=== PATIENT | male | born 1950 | race African-American/Black ===

== ENCOUNTER 2022-03-20 17:01 | Inpatient (IN) | payer MEDICARE, OTHER ==
[~2022-03-20] VITALS: Ht 165.1 cm; Wt 73.0 kg
[~2022-03-20 17:01] MED LIST: ACET325T53 PO; ASCO500C17 PO; Blood Sugar Diagnostic IN; CHOL50009 PO; Calcium Carb 600MG /Vit D PO; DIVA-78 PO; DOCU-141 PO; HYDR28.32 TP; INSU100V28 SQ; LACT-246 PO; MAG-55 PO; MAGN400O6 PO; METF-442 PO; OLAN7.5T3 PO; SULF-11 PO
--- NOTE | 2022-03-20 17:12 | NUR ---
To ER bed 1, [facility] from [facility] failure to thrive/weight loss", aaox1, breathing even and non labored, connected to monitor, awaiting md leon
--- NOTE | 2022-03-20 17:15 | NUR ---
SALINE LOCK ESTABLISHED, BLOOD DRAWN AND SENT TO LAB
[2022-03-20] MEDS ORDERED: Z GUARD REMEDY 4 OZ OINT TP PRN (17:30)
[2022-03-20] MEDS ORDERED: ACETAMINOPHEN 325 MG TABLET PO PRN (17:30)
[2022-03-20] MEDS ORDERED: DEXTROSE 50%-WATER 50 ML DISP.SYRIN IV PRN (17:30)
[2022-03-20] MEDS ORDERED: ONDANSETRON HCL/PF 4 MG/2 ML VIAL IVP PRN (17:30)
[2022-03-20] MEDS ORDERED: *INSULIN REGULAR(HUMULIN R)HUM 100 UNIT/ML VIAL SQ PRN (17:30)
[2022-03-20] MEDS ORDERED: MAG HYDROX/AL HYDROX/SIMETH 30 ML UDC PO PRN (17:30)
[2022-03-20] MEDS: BLOOD SUGAR DIAGNOSTIC 1 EACH STRIP VI SCH ×2 (17:30→22:05)
[2022-03-20] MEDS ORDERED: MAGNESIUM HYDROXIDE 30 ML UDC PO PRN (17:30)
[2022-03-20] MEDS ORDERED: AMIN887L PO (17:36)
[2022-03-20] MEDS ORDERED: CALC400T29 PO (17:36)
[2022-03-20] MEDS ORDERED: FURO-145 PO (17:36)
[2022-03-20 18:12] LABS: BASOPHILS % (AUTO) 0.4 % (0.0-2.0); EOSINOPHILS % (AUTO) 4.8 % (0.0-6.0); HEMATOCRIT 41 % (39-51); HEMOGLOBIN 13.9 g/dL (13.5-17.5); LYMPHOCYTES # (AUTO) 2.2 K/uL (0.8-4.8); LYMPHOCYTES % (AUTO) 29.6 % (20.0-44.0); MEAN CORPUSCULAR HGB CONC 34 g/dl (31.0-36.0); MEAN CORPUSCULAR VOLUME 88 fL (80-96); MONOCYTES # (AUTO) 0.6 K/uL (0.1-1.30); MONOCYTES % (AUTO) 8.6 % (2.0-12.0); NEUTROPHILS # (AUTO) 4.3 K/uL (1.8-8.9); NEUTROPHILS % (AUTO) 56.6 % (43.0-81.0); PLATELET COUNT (AUTO) 297 K/uL (150-450); RED BLOOD CELL COUNT(AUTO) 4.62 MIL/uL (4.5-6.0); WHITE BLOOD COUNT (AUTO) 7.5 K/uL (4.3-11.0)
--- NOTE | 2022-03-20 18:14 | NUR ---
MOVE SHEET SUBMITTED.
[2022-03-20 18:26] LABS: CALCIUM, SERUM 8.6 mg/dL (8.5-10.1); CARBON DIOXIDE 31 mmol/L (21-32); CHLORIDE 105 mmol/L (98-107); CREATININE 0.9 mg/dL (0.6-1.3); GLUCOSE 104 mg/dL (74-106); POTASSIUM 3.7 mmol/L (3.5-5.1); SODIUM SERUM 139 mmol/L (136-145); UREA NITROGEN, BLOOD 26 mg/dL (7-18)
[2022-03-20 18:31] LABS: ALANINE AMINOTRANSFERASE 16 U/L (12-78); ALBUMIN 3.4 g/dL (3.4-5.0); ALKALINE PHOSPHATASE 94 U/L (46-116); ASPARTATE AMINOTRANSFERASE 10 U/L (15-37); BILIRUBIN,DIRECT 0.1 mg/dL (0.0-0.2); BILIRUBIN,TOTAL 0.3 mg/dL (0.2-1.0); TOTAL PROTEIN, SERUM 7.3 g/dL (6.4-8.2)
[2022-03-20 19:31] LABS: BILIRUBIN,URINE NEGATIVE (NEGATIVE); COLOR,URINE YELLOW (YELLOW); LEUKOCYTE ESTERASE ,URINE LARGE (NEGATIVE); NITRITE, URINE POSITIVE (NEGATIVE); PH,URINE 7.5 (5.0-8.0); PROTEIN,URINE NEGATIVE (NEGATIVE); UGLUCOSE NEGATIVE (NEGATIVE)
[2022-03-20 19:36] LABS: RBC,URINE 0-2 /HPF (0-2)
[2022-03-20 19:37] LABS: BACTERIA,URINE Moderate /HPF (None Seen); SQUAMOUS EPITHELIAL CELL,UR Few /HPF (None Seen)
--- NOTE | 2022-03-20 19:43 | NUR ---
Maria Eugenia siddiqi in [facility] - 03/20/22 at 1947 by GAIL PLHEBOTOMIST AT PT'S BEDSIDE
--- NOTE | 2022-03-20 19:43 | NUR ---
PLHEBOTOMIST AT PT'S BEDSIDE
--- NOTE | 2022-03-20 20:29 | NUR ---
REPORT GIVEN TO MELANIA GREGG
[2022-03-20 21:04] VITALS: BP 131/70
--- NOTE | 2022-03-20 22:00 | NUR ---
MS RN NOTES PT A/O X1 ORIENTED TO SELF CONFUSED NOTED SPEAKING TO HIMSELF MOLDOVAN SPEAKING ONLY. PT IS HOWEVER ABLE TO MAKE BASIC NEED KNOWN PAIN AND THIRST. PT NOTED WITH IV ACCESS ON THE RAC #20G SALINE LOCKED FLUSHING WELL. PT ON ROOM AIR TOLERATING WELL NO RESPIRATORY DISTRESS NOTED. NO PAIN NOTED OR REPORTED AT THIS TIME. PT NOTED WITH MULTIPLE LINEAR SCABS ON THE LEGS AND RED BUMPS ALL OVER THE BODY PLACED ON CONTACT ISOLATION AND CHARGE NURSE INFORMED WOUND CARE CONSULT PUT IN TO RULE OUT ANY SKIN INFECTION/ SCABIES. HOB ELEVATED FOR ASPIRATION PRECAUTIONS. TABLE WITHIN REACH. BED ALARM ON BED IN LOWEST POSITION. CALL LIGHT WITHIN REACH. PT ORIENTED TO ROOM AND UNIT. ALL NEEDS MET AT THIS TIME. WILL CONTINUE TO MONITOR.
--- NOTE | 2022-03-20 22:00 | NUR ---
PATIENT TRANSFERRED TO [facility]
[2022-03-20] MEDS: OLANZAPINE 5 MG TABLET PO SCH (22:06)
[2022-03-20 22:49] VITALS: BP 131/70
--- NOTE | 2022-03-20 23:00 | NUR ---
MS RN NOTES CALLED CANDELARIA THE DAUGHTER AGAIN WAS ABLE OT TALK TO HER THIS TIME PER DAUGHTER PT HAS BEEN UNABLE TO AMBULATE AND HAS BEEN WHEELCHAIR BOUND RECENTLY PT WAS PREVIOUSLY ABLE TO AMBULATE WITH A FFW. DAUGHTER STATED SHE WOULD LIKE THE DOCTOR OR NURSE TO CALL HER TOMORROW TO UPDATE HER ON THE PLAN OF CARE FOR THE PT. DAUGHTER WILL TRY TO COME TOMORROW IN PERSON AROUND 3PM IF POSSIBLE.WILL ENDORSE TO DAY SHIFT NURSE. ALL QUESTIONS ANSWERED AT THIS TIME. WILL CONTINUE TO MONITOR PT.
--- NOTE | 2022-03-20 23:11 | NUR ---
MS VELÁZQUEZ NOTES RECEIVED CALL FROM DAUGHTER CANDELARIA DAUGHTER HUNG UP ABRUPTLY TRIED CALLING BACK X3 WITH X2 [employer] OF THE PHONE AND THIRD TIME PHONE WAS BUSY. Addendum: 03/20/22 at 2584 by JOHN LARSON RN NO MESSAGE BOX TO LEAVE CALL BACK INFO
[2022-03-21 06:13] LABS: BASOPHILS % (AUTO) 0.7 % (0.0-2.0); EOSINOPHILS % (AUTO) 6.4 % (0.0-6.0); HEMATOCRIT 39 % (39-51); HEMOGLOBIN 13.4 g/dL (13.5-17.5); LYMPHOCYTES # (AUTO) 1.9 K/uL (0.8-4.8); LYMPHOCYTES % (AUTO) 37.5 % (20.0-44.0); MEAN CORPUSCULAR HGB CONC 34 g/dl (31.0-36.0); MEAN CORPUSCULAR VOLUME 88 fL (80-96); MONOCYTES # (AUTO) 0.5 K/uL (0.1-1.30); MONOCYTES % (AUTO) 9.4 % (2.0-12.0); NEUTROPHILS # (AUTO) 2.4 K/uL (1.8-8.9); PLATELET COUNT (AUTO) 261 K/uL (150-450); RED BLOOD CELL COUNT(AUTO) 4.42 MIL/uL (4.5-6.0); WHITE BLOOD COUNT (AUTO) 5.1 K/uL (4.3-11.0)
--- NOTE | 2022-03-21 06:35 | NUR ---
MS RN NOTES PT A/O X1 ORIENTED TO SELF CONFUSED NOTED SPEAKING TO HIMSELF SAMOAN SPEAKING ONLY. PT IS HOWEVER ABLE TO MAKE BASIC NEED KNOWN PAIN AND THIRST. PT NOTED WITH IV ACCESS ON THE RAC #20G SALINE LOCKED FLUSHING WELL. PT ON ROOM AIR TOLERATING WELL NO RESPIRATORY DISTRESS NOTED. NO PAIN NOTED OR REPORTED AT THIS TIME. ALL DUE MEDS GIVEN AND TOLERATED WELL. HOB ELEVATED FOR ASPIRATION PRECAUTIONS. TABLE WITHIN REACH. BED ALARM ON BED IN LOWEST POSITION. CALL LIGHT WITHIN REACH. PT ORIENTED TO ROOM AND UNIT.ALL NEEDS MET AT THIS TIME. WILL ENDORSE CARE TO DAY SHIFT NURSE.
[2022-03-21 07:10] LABS: CALCIUM, SERUM 8.3 mg/dL (8.5-10.1); CREATININE 0.8 mg/dL (0.6-1.3); MAGNESIUM 2.3 mg/dL (1.8-2.4); PHOSPHORUS 3.9 mg/dL (2.5-4.9); POTASSIUM 3.8 mmol/L (3.5-5.1)
--- NOTE | 2022-03-21 07:30 | NUR ---
MS RN OPENING NOTES PT A/O X1 ORIENTED TO SELF , WITH CONFUSION, VENEZUELAN SPEAKING ONLY. IV ACCESS ON THE RAC #20G SALINE LOCKED FLUSHING WELL. PT ON ROOM AIR WITH NO SOB OR DISTRESS NOTED. NO PAIN NOTED OR REPORTED AT THIS TIME . BED IN LOWEST POSITION. CALL LIGHT WITHIN REACH. WILL CONTINUE TO MONITOR
[2022-03-21 08:00] VITALS: BP 105/75
[2022-03-21] MEDS: BLOOD SUGAR DIAGNOSTIC 1 EACH STRIP VI SCH ×4 (08:03→22:00)
[2022-03-21] MEDS: DOCUSATE SODIUM 100 MG CAPSULE PO SCH (08:34)
[2022-03-21] MEDS: DIVALPROEX SODIUM 250 MG TABLET.DR PO SCH ×3 (08:34→16:53)
[2022-03-21] MEDS ORDERED: HYDROCORTISONE 1% CREAM 28.35 GM TUBE TP SCH (09:00)
[2022-03-21] MEDS: CEFTRIAXONE 1 G in IV D5W 50 ML IV SCH (12:30)
[2022-03-21 16:00] VITALS: BP 127/75
[2022-03-21 16:52] LABS: LIPASE 103 U/L (73-393)
--- NOTE | 2022-03-21 18:33 | NUR ---
MS RN CLOSING NOTES PT IN BED , A/O X1 ORIENTED TO SELF , WITH CONFUSION, KOSOVAN SPEAKING ONLY. IV ACCESS ON THE RAC #20G SALINE LOCKED FLUSHING WELL. PT ON ROOM AIR WITH NO SOB OR DISTRESS NOTED. NO PAIN NOTED OR REPORTED AT THIS TIME . ALL DUE MEDS GIVEN AND IV ATB OF ROCEPHIN GIVEN ORDERED , ON ISOLATION DUE MULTIPLE SKIN REDNESS AND SCABS BUE AND BLE , BED IN LOWEST POSITION. CALL LIGHT WITHIN REACH. ALL NEEDS ATTENDED
--- NOTE | 2022-03-21 19:31 | NUR ---
MS RN OPENING NOTES: RECEIVED PATIENT AWAKE IN BED, BED IN LOW POSITION CALL LIGHTS WITHIN REACH, NO COMPLAIN OF PAIN AND DISCOMFORT AT THIS TIME, ON ROOM AIR SATURATING WELL, PATIENT IS SUSPECTED OF SCABIES ON CONTACT ISOLATION UNTIL RULE OUT, IV LINE PULLED UP BY PATIENT WILL REPLACE, PATIENT KEPT CLEAN AND DRY ALL NEEDS MET WILL CONTINUE TO MONITOR.
[2022-03-21 20:00] VITALS: BP 109/62
[2022-03-21] MEDS: OLANZAPINE 5 MG TABLET PO SCH (22:10)
--- NOTE | 2022-03-21 23:03 | NUR ---
RN NOTES; BLOOD SUGAR-112/ NO INSULIN GIVEN ; OUT OF PARAMETER
--- NOTE | 2022-03-22 06:49 | NUR ---
RN CLOSING NOTES: PATIENT SLEEP IN BED COMFORTABLY, BED IN LOW POSITION, CALL LIGHTS WITHIN REACH, NO COMPLAIN OF PAIN AND DISCOMFORT AT THIS TIME, ON ROOM AIR SATURATING WELL, PATIENT ON CONTACT ISOLATION DUE TO SUSPECTED SCABIES, PATIENT IS A/OX1 ON BED REST ON RESTRAINT FOR PULLING THE IV LINE, , PATIENT KEPT CLEAN AND DRY ALL NEEDS MET ENDORSE TO INCOMING SHIFT.
--- NOTE | 2022-03-22 06:56 | NUR ---
RN NOTES: BLOOD SUGAR -85/ NO INSULIN GIVEN PER SLIDING SCALE
--- NOTE | 2022-03-22 07:04 | NUR ---
MS RN OPENING NOTES RECEIVED PATIENT SLEEPING IN BED. A/Ox 1 SAO TOMEAN SPEAKING. IV ACCESS LFA #20 SL INTACT AND PATENT. PATIENT ON ROOM AIR, NO S/S OF RESPIRATORY DISTRESS. PATIENT HAS BILATERAL WRIST RESTRAINTS DUE TO TUGGING AT IV. CIRCULATION WITHIN NORMAL LIMITS, NO S/S OF WRIST SKIN DISCOLORATION. PATIENT IS INCONTINENT, USES DIAPER. SKIN ISSUES: BLE SCABS, BUE REDNESS AND R GROIN REDNESS. SAFETY MEASURES IN PLACE: BED LOCKED AND IN LOWEST POSITION, CALL LIGHT WITHIN REACH, BED ALARM ON, SIDE RAILS UP x2, HOB ELEVATED. WILL CONTINUE TO MONITOR.
[2022-03-22 07:19] LABS: BASOPHILS % (AUTO) 0.4 % (0.0-2.0); HEMATOCRIT 40 % (39-51); HEMOGLOBIN 13.6 g/dL (13.5-17.5); LYMPHOCYTES # (AUTO) 2.2 K/uL (0.8-4.8); LYMPHOCYTES % (AUTO) 36.8 % (20.0-44.0); MEAN CORPUSCULAR HGB CONC 34 g/dl (31.0-36.0); MEAN CORPUSCULAR VOLUME 88 fL (80-96); MONOCYTES # (AUTO) 0.6 K/uL (0.1-1.30); MONOCYTES % (AUTO) 9.6 % (2.0-12.0); NEUTROPHILS # (AUTO) 2.8 K/uL (1.8-8.9); NEUTROPHILS % (AUTO) 46.2 % (43.0-81.0); PLATELET COUNT (AUTO) 252 K/uL (150-450); RED BLOOD CELL COUNT(AUTO) 4.51 MIL/uL (4.5-6.0); WHITE BLOOD COUNT (AUTO) 6.1 K/uL (4.3-11.0)
[2022-03-22] MEDS: BLOOD SUGAR DIAGNOSTIC 1 EACH STRIP VI SCH ×4 (07:30→22:28)
[2022-03-22 07:50] LABS: MAGNESIUM 2.1 mg/dL (1.8-2.4); PHOSPHORUS 4.1 mg/dL (2.5-4.9)
[2022-03-22] MEDS: DIVALPROEX SODIUM 250 MG TABLET.DR PO SCH ×3 (09:03→16:56)
[2022-03-22] MEDS: DOCUSATE SODIUM 100 MG CAPSULE PO SCH (09:03)
[2022-03-22] MEDS: CEFTRIAXONE 1 G in IV D5W 50 ML IV SCH (10:54)
[2022-03-22] MEDS: INSULIN REGULAR, HUMAN 100 UNIT/ML 3 ML VIAL SQ PRN (11:58)
--- NOTE | 2022-03-22 12:05 | NUR ---
RN NOTES BLOOD SUGAR 227, 6 UNITS OF COVERAGE ADMINISTERED, WILL CONTINUE TO MONITOR.
[2022-03-22 16:29] VITALS: BP 105/58
--- NOTE | 2022-03-22 17:23 | NUR ---
RN NOTES BLOOD SUGAR CHECKED BS 77, NO COVERAGE GIVEN.
--- NOTE | 2022-03-22 18:36 | NUR ---
MS RN CLOSING NOTES PATIENT RESTING IN BED. A/Ox 1 DIVEHI SPEAKING. IV ACCESS LFA #20 SL INTACT AND PATENT. PATIENT ON ROOM AIR, NO S/S OF RESPIRATORY DISTRESS. PATIENT HAS BILATERAL WRIST RESTRAINTS DUE TO TUGGING AT IV. CIRCULATION WITHIN NORMAL LIMITS, NO S/S OF WRIST SKIN DISCOLORATION. PATIENT IS INCONTINENT, USES DIAPER. SKIN ISSUES: BLE SCABS, BUE REDNESS AND R GROIN REDNESS. ALL PRESCRIBED MEDICATION ADMINISTERED. SAFETY MEASURES MAINTAINED: BED LOCKED AND IN LOWEST POSITION, CALL LIGHT WITHIN REACH, BED ALARM ON, SIDE RAILS UP x2, HOB ELEVATED. WILL ENDORSE TO NEXT SHIFT ANY KIRK.
[2022-03-22 20:00] VITALS: BP 152/79
[2022-03-22] MEDS: OLANZAPINE 5 MG TABLET PO SCH (22:10)
--- NOTE | 2022-03-22 22:48 | NUR ---
RN NOTES; BLOOD SUGAR-87, NO INSULIN GIVEN ; OUT OF PARAMETER
--- NOTE | 2022-03-23 05:48 | NUR ---
BLOOD SUGAR-89, NO INSULIN GIVEN ; OUT OF PARAMETER
--- NOTE | 2022-03-23 07:00 | NUR ---
RN CLOSING NOTES PT IN BED REST, A/O X1 ORIENTED TO SELF , MARKED CONFUSION NOTED, VIETNAMESE SPEAKING, IV ACCESS ON THE RAC #20G SALINE LOCKED FLUSHING WELL. PT ON ROOM AIR WITH NO SOB OR DISTRESS NOTED. ON ISOLATION DUE MULTIPLE SKIN REDNESS AND SCABS BUE AND BLE , BED IN LOWEST POSITION. CALL LIGHT WITHIN REACH. ENDORSED TO THE ONCOMING NURSE
--- NOTE | 2022-03-23 07:23 | NUR ---
RN OPENING NOTES- PATIENT AWAKE IN BED, ORIENTED TO PERSON ONLY, CONFUSED, CAPE VERDEAN-SPEAKING, BED IN LOW POSITION CALL LIGHT WITHIN REACH, ON ROOM AIR SATURATING WELL, PATIENT KEPT CLEAN AND DRY. ALL NEEDS MET WILL CONTINUE TO MONITOR / ASSIST
[2022-03-23] MEDS: BLOOD SUGAR DIAGNOSTIC 1 EACH STRIP VI SCH ×2 (07:50→12:42)
[2022-03-23] MEDS: INSULIN REGULAR, HUMAN 100 UNIT/ML 3 ML VIAL SQ PRN ×2 (07:52→12:42)
--- NOTE | 2022-03-23 08:17 | NUR ---
WOUND CARE CONSULT: PT PRESENTS WITH SCABS AND SCRATCH LISA ON ARMS AND LEGS, PRESENT ON ADMISSION. DEFER TO PMD FOR SKIN CONDITION. RECOMMENDATIONS MADE FOR SKIN PROTECTION. DISCUSSED WITH NURSING STAFF. MD IN AGREEMENT WITH PLAN OF CARE.
--- NOTE | 2022-03-23 08:20 | NUR ---
RN NOTE- DR OTERO ASSESSED PT FOR SCABIES CONCERN. PT W REDNESS AND PRURITIS. PT DOESN'T HAVE SCABIES PER MD.
[2022-03-23 08:40] VITALS: BP 146/76
[2022-03-23] MEDS ORDERED: CEPH500C2 PO (08:50)
[2022-03-23] MEDS: DIVALPROEX SODIUM 250 MG TABLET.DR PO SCH ×2 (08:56→13:16)
[2022-03-23] MEDS: DOCUSATE SODIUM 100 MG CAPSULE PO SCH (08:56)
[2022-03-23] MEDS: CEFTRIAXONE 1 G in IV D5W 50 ML IV SCH (11:17)
--- NOTE | 2022-03-23 13:09 | NUR ---
RAW HIDE TRIMMER NOTE- PT DC AT THIS [facility]. IV SITE DC'D, ID WRISTBAND REMOVED, REPORT PHONED TO FACILITY. DC INSTRUCTIONS GIVEN AND UNDERSTOOD. ESCORTED OFF UNIT BY STAFF.
== END 2022-03-23 13:10 | DRG 682 ==
LOC: ER 17:34 → TRANSITION 18:52 → MED 20:14
PROVIDERS: ADMIT Internal Medicine; ATTEND Internal Medicine
DX: N17.0 Acute kidney failure with tubular necrosis (principal); E43 Unspecified severe protein-calorie malnutrition; G93.41 Metabolic encephalopathy; N39.0 Urinary tract infection, site not specified; D68.59 Other primary thrombophilia; Z20.822 Contact with and (suspected) exposure to COVID-19; F02.80 Dementia in other diseases classified elsewhere, unspecified severity, without behavioral disturbance, psychotic disturbance, mood disturbance, and anxiety; G30.9 Alzheimer's disease, unspecified; E11.9 Type 2 diabetes mellitus without complications; Z86.16 Personal history of COVID-19; R27.8 Other lack of coordination; M62.50 Muscle wasting and atrophy, not elsewhere classified, unspecified site; F20.9 Schizophrenia, unspecified; F31.9 Bipolar disorder, unspecified; Z79.84 Long term (current) use of oral hypoglycemic drugs; Z79.899 Other long term (current) drug therapy; F41.9 Anxiety disorder, unspecified; E88.09 Other disorders of plasma-protein metabolism, not elsewhere classified; R62.7 Adult failure to thrive; Z79.4 Long term (current) use of insulin; B96.20 Unspecified Escherichia coli [E. coli] as the cause of diseases classified elsewhere; Z74.09 Other reduced mobility; E86.0 Dehydration
CPT/HCPCS: 36415; 71045-TC; 80048-TC; 80076-TC; 80164-TC; 81001; 82962-TC; 83690-TC; 83735-TC; 84100-TC; 85025-TC; 85730-TC; 87081-TC; 87086-TC; 87186-TC; 97110-TC; 97112-TC; 97116-TC; 97530-TC; C9803; G0378; J0696; J1815; J7050; J7060

== ENCOUNTER 2022-12-04 13:43 | Inpatient (IN) | payer MEDICARE, OTHER ==
[~2022-12-04] VITALS: Ht 165.1 cm; Wt 58.1 kg
[~2022-12-04 13:43] MED LIST changes: +AMIN887L PO; -Blood Sugar Diagnostic IN; +CALC400T29 PO; +CEPH500C2 PO; -Calcium Carb 600MG /Vit D PO; +FURO-145 PO; -INSU100V28 SQ; -LACT-246 PO; -SULF-11 PO
--- NOTE | 2022-12-04 14:26 | NUR ---
bib PA frm SNF for weight lose/ failure to thrive eval. per report lose 21 lbs in 3 months. PLACED IN BED, AWAKE RESPONDING TO VERBAL STIMULI/
[2022-12-04] MEDS ORDERED: ONDANSETRON HCL/PF 4 MG/2 ML VIAL IVP ONE (15:00)
[2022-12-04] MEDS ORDERED: IV NS 0.9% 500 ML BAG IV ONE (15:00)
[2022-12-04] MEDS ORDERED: APIX5TAB PO (15:15)
[2022-12-04] MEDS ORDERED: IPRA3AMP23 IH (15:15)
[2022-12-04] MEDS ORDERED: PANT40TA2 PO (15:15)
[2022-12-04] MEDS ORDERED: MAG30ORA PO (15:15)
[2022-12-04] MEDS ORDERED: ASCO500T10 PO (15:15)
[2022-12-04] MEDS ORDERED: CHOL100043 PO (15:15)
[2022-12-04] MEDS ORDERED: MULT-447 PO (15:15)
[2022-12-04] MEDS ORDERED: BUDE0.5A4 IH (15:15)
[2022-12-04] MEDS ORDERED: ONDANSETRON HCL/PF 4 MG/2 ML VIAL ONE (15:33)
--- NOTE | 2022-12-04 15:35 | NUR ---
SHOT BLASTER AT BEDSIDE
--- NOTE | 2022-12-04 15:53 | NUR ---
MOVE SHEET SUBMITTED.
[2022-12-04 15:57] LABS: BASOPHILS % (AUTO) 0.4 % (0.0-2.0); EOSINOPHILS % (AUTO) 2.9 % (0.0-6.0); HEMATOCRIT 45 % (39-51); HEMOGLOBIN 14.9 g/dL (13.5-17.5); LYMPHOCYTES # (AUTO) 1.6 K/uL (0.8-4.8); LYMPHOCYTES % (AUTO) 26.1 % (20.0-44.0); MEAN CORPUSCULAR HGB CONC 33 g/dl (31.0-36.0); MEAN CORPUSCULAR VOLUME 86 fL (80-96); MONOCYTES # (AUTO) 0.5 K/uL (0.1-1.30); MONOCYTES % (AUTO) 7.7 % (2.0-12.0); NEUTROPHILS # (AUTO) 3.9 K/uL (1.8-8.9); NEUTROPHILS % (AUTO) 62.9 % (43.0-81.0); PLATELET COUNT (AUTO) 326 K/uL (150-450); RED BLOOD CELL COUNT(AUTO) 5.15 MIL/uL (4.5-6.0); WHITE BLOOD COUNT (AUTO) 6.1 K/uL (4.3-11.0)
[2022-12-04 16:21] LABS: CALCIUM, SERUM 9.1 mg/dL (8.5-10.1); CREATININE 0.9 mg/dL (0.6-1.3); POTASSIUM 3.7 mmol/L (3.5-5.1)
--- NOTE | 2022-12-04 16:24 | NUR ---
SWAB FOR COVID19 SENT TO LAB
[2022-12-04 16:30] LABS: ALBUMIN 3.1 g/dL (3.4-5.0); BILIRUBIN,DIRECT 0.1 mg/dL (0.0-0.2); BILIRUBIN,TOTAL 0.4 mg/dL (0.2-1.0); TOTAL PROTEIN, SERUM 6.7 g/dL (6.4-8.2)
--- NOTE | 2022-12-04 17:25 | NUR ---
BED 326-2. ADMITTING DEPT NOTIFIED.
[2022-12-04] MEDS ORDERED: BUDESONIDE RESPULE INH 0.5 MG/2 ML AMPUL.NEB IH PRN (18:00)
[2022-12-04] MEDS ORDERED: Z GUARD REMEDY 4 OZ OINT TP PRN (18:00)
[2022-12-04] MEDS ORDERED: MAG HYDROX/AL HYDROX/SIMETH 30 ML UDC PO PRN (18:00)
[2022-12-04] MEDS ORDERED: ACETAMINOPHEN 325 MG TABLET PO PRN ×2 (18:00)
[2022-12-04] MEDS ORDERED: MAGNESIUM HYDROXIDE 30 ML UDC PO PRN (18:00)
[2022-12-04] MEDS ORDERED: ONDANSETRON HCL/PF 4 MG/2 ML VIAL IVP PRN (18:00)
--- NOTE | 2022-12-04 18:35 | NUR ---
URINE SAMPLE SENT TO LAB
[2022-12-04 18:40] VITALS: BP 97/59
--- NOTE | 2022-12-04 18:40 | NUR ---
PATIENT TRANSFERED, ADMITTED AND REPORT GIVEN TO MANI RN ROOM 326 FOR KIRK
--- NOTE | 2022-12-04 18:48 | NUR ---
MS PYTHON DJANGO DEVELOPER NOTE Patient arrived at 18:35 hours via gurney from the ED. Vital signs stable, afebrile. Patient unresponsive to both Mongolian and Cameroonian questions, would not follow commands and did not seem to track with his eyes when spoken to. Safety fall precautions in place: bed in lowest position; bed brakes locked on; bed alarm on; three bed side rails up; and call klein/lightand bed side table within reach of patient. Will endorse to assembler 1st shift RN, [employer], for KIRK.
[2022-12-04 20:00] VITALS: BP 110/60
[2022-12-04 20:23] LABS: BILIRUBIN,URINE NEGATIVE (NEGATIVE); COLOR,URINE YELLOW (YELLOW); LEUKOCYTE ESTERASE ,URINE TRACE (NEGATIVE); NITRITE, URINE NEGATIVE (NEGATIVE); PROTEIN,URINE NEGATIVE (NEGATIVE); UGLUCOSE NEGATIVE (NEGATIVE)
[2022-12-04] MEDS ORDERED: IPRATROPIUM NEB FS 0.5 MG/2.5 ML AMPUL.NEB NEB PRN (20:30)
[2022-12-04] MEDS ORDERED: ALBUTEROL FS 2.5 MG/0.5 ML VIAL.NEB IH PRN (20:30)
[2022-12-04 20:32] LABS: BACTERIA,URINE 2+ /HPF (None Seen); RBC,URINE 0-2 /HPF (0-2)
[2022-12-04 20:33] LABS: MUCUS,URINE Many /LPF (None Seen)
[2022-12-04] MEDS ORDERED: CEFTRIAXONE 1 G VIAL ONE (22:13)
[2022-12-04] MEDS: CEFTRIAXONE 1 G in IV D5W 50 ML IV SCH (22:21)
[2022-12-04] MEDS: IV D5/0.45 NACL 1,000 ML IV PRN (22:21)
[2022-12-04] MEDS: OLANZAPINE 5 MG TABLET PO SCH (22:32)
--- NOTE | 2022-12-05 00:37 | NUR ---
ADMISSION NOC RN NOTE RECEIVED PATIENT ALREADY IN ROOM, REPORT FROM MANI RN. PATIENT IS UNABLE TO ANSWER QUESTIONS D/T MENTATION AND CONDITION. DAUGHTER, HIRA, CALLED TO ASK ADMISSION QUESTIONS.. # [phone]. PER DAUGHTER, PATIENT HAS BEEN A RESIDENT IN [facility] FOR 3-4 YEARS AND HAS ADVANCED [employer]ZHEIMER[employer]S. PER DAUGHTER PATIENT HAS LOST 20LBS IN THE FACILITY AND HAS NOT BEEN EATING; ALTHOUGH PATIENT PASSED NURSING SWALLOW ASSESSMENT. DAUGHTER WISHES FOR PATIENT TO BE FULL CODE, WITH NO ADVANCED DIRECTIVE. PER DAUGHTER, PATIENT IS UP-TO-DATE WITH ALL HIS IMMUNIZATIONS INCLUDING COVID, WITH UNKNOWN DATES. 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 NEW ID BAND ON PATIENT. IV ACCESS ON LEFT HAND #20G--STARTED ON D5 1/2 NS @75MLS/HR ORDERED. SKIN ASSESSMENTS DONE WITH NO OPEN WOUNDS, PICTURES TAKEN. PATIENT HAS NO BELONGINGS BUT HIS 2 BOOTS. NEEDS ATTENDED. SAFETY IN PLACE-- BED IN LOWEST, LOCKED POSITION, CALL LIGHT WITHIN REACH, SIDE RAILS UP X4. ALL HIRA'S QUESTIONS ANSWERED FOR NOW AND MADE AWARE OF VISITATION HOURS. WILL CONTINUE WITH PATIENT'S PLAN OF CARE.
[2022-12-05 06:40] LABS: BASOPHILS % (AUTO) 0.4 % (0.0-2.0); EOSINOPHILS % (AUTO) 3.5 % (0.0-6.0); HEMATOCRIT 42 % (39-51); HEMOGLOBIN 13.9 g/dL (13.5-17.5); LYMPHOCYTES # (AUTO) 1.9 K/uL (0.8-4.8); MEAN CORPUSCULAR HGB CONC 33 g/dl (31.0-36.0); MEAN CORPUSCULAR VOLUME 86 fL (80-96); MONOCYTES # (AUTO) 0.4 K/uL (0.1-1.30); NEUTROPHILS # (AUTO) 2.9 K/uL (1.8-8.9); NEUTROPHILS % (AUTO) 53.1 % (43.0-81.0); PLATELET COUNT (AUTO) 292 K/uL (150-450); RED BLOOD CELL COUNT(AUTO) 4.92 MIL/uL (4.5-6.0); WHITE BLOOD COUNT (AUTO) 5.5 K/uL (4.3-11.0)
[2022-12-05 07:02] LABS: BILIRUBIN,TOTAL 0.5 mg/dL (0.2-1.0); CALCIUM, SERUM 8.9 mg/dL (8.5-10.1); CREATININE 0.9 mg/dL (0.6-1.3); MAGNESIUM 1.8 mg/dL (1.8-2.4); PHOSPHORUS 3.3 mg/dL (2.5-4.9); POTASSIUM 3.8 mmol/L (3.5-5.1); TOTAL PROTEIN, SERUM 6.4 g/dL (6.4-8.2)
--- NOTE | 2022-12-05 07:11 | NUR ---
noc rn closing note Patient in bed, with eyes closed. no s/s of apparent distress on room air. flacc always a 2 d/t abnormal flexion of BLE. IV D5 1/2 ns running @75mls/hr. all needs attended. all scheduled medications administered. safety kept in place the whole shift. will endorse to morning shift rn for continuity of patient care.
--- NOTE | 2022-12-05 07:58 | NUR ---
RN OPENING NOTE RECEIVED PATIENT IN BED, ABLE TO RESPONDS ALL PHYSICAL STIMULI. RESPIRATORY EVEN AND UNLABORED IN ROOM AIR. IN NO ACUTE RESPIRATORY DISTRESS OBSERVED. SKIN IS WARM TO TOUCH, KEEP CLEAN/DRY. KEPT ELEVATED HOB FOR ASPIRATION PRECAUTION AND ENSURE AIRWAY, ALSO LOWEST BED POSITIONED. BED ALARM IS ON AT ALL TIMES FOR SAFETY. CALL LIGHT WITHIN REACH, WILL CONTINUE TO MONITOR.
[2022-12-05 08:00] VITALS: BP 113/76
[2022-12-05] MEDS: ASCORBIC ACID 500 MG TABLET PO SCH (08:34)
[2022-12-05] MEDS: DOCUSATE SODIUM 100 MG CAPSULE PO SCH (08:34)
[2022-12-05] MEDS: CHOLECALCIFEROL 1,000 UNIT TABLET (VIT D3) PO SCH (08:34)
[2022-12-05] MEDS: PANTOPRAZOLE 40 MG TABLET.DR PO SCH (08:35)
[2022-12-05] MEDS: DIVALPROEX SODIUM 250 MG TABLET.DR PO SCH ×2 (08:35→17:12)
[2022-12-05] MEDS: APIXABAN 5 MG TABLET PO SCH ×2 (08:36→17:12)
[2022-12-05] MEDS ORDERED: PANTOPRAZOLE 40 MG VIAL IV SCH (09:00)
[2022-12-05] MEDS: IV D5/0.45 NACL 1,000 ML IV PRN (13:29)
[2022-12-05 16:00] VITALS: BP 119/74
--- NOTE | 2022-12-05 18:24 | NUR ---
RN CLOSING NOTE PATIENT RESTING IN BED. IN NO ACUTE DISTRESS OBSERVED. RESPIRATORY EVEN AND UNLABORED IN ROOM AIR, NO SOB OR DESATURATION NOTED. SKIN IS WARM TO TOUCH KEEP CLEAN/DRY. KEPT ELEVATED HOB FOR ENSURE AIRWAY AND ASPIRATION PRECAUTION, ALSO LOWEST BED POSITION. BED ALARM IS ON AT ALL TIMES FOR SAFETY. CALL LIGHT WITHIN REACH, WILL ENDORSE FIBREGLASS GUN HAND.
[2022-12-05] MEDS ORDERED: DEXTROSE 50%-WATER 50 ML DISP.SYRIN IV PRN (19:00)
[2022-12-05] MEDS ORDERED: *INSULIN REGULAR(HUMULIN R)HUM 100 UNIT/ML VIAL SQ PRN (19:00)
--- NOTE | 2022-12-05 19:55 | NUR ---
MS RN OPENING NOTES RECEIVED PATIENT IN BED AWAKE. A/O X 1, DELAYED. ABLE TO MAKE NEEDS KNOWN. PT IS ARABIC SPEAKING. ON RA, BREATHING EVEN AND UNLABORED, NO DISTRESS OR SOB NOTED AT THIS TIME. IV ACCESS TO LEFT HAND #20G RUNNING D5 1/2 NS @ 75 ML/HR. HOB ELEVATED. SAFETY MEASURES IN PLACE: BED IN LOWEST LOCKED POSITION. SIDE RAILS UP X2. CALL LIGHT WITHIN REACH. WILL CONTINUE WITH THE PLAN OF CARE AND CARRY OUT ACTIVE MD ORDERS.
[2022-12-05 20:00] VITALS: BP 161/82
[2022-12-05] MEDS: CEFTRIAXONE 1 G in IV D5W 50 ML IV SCH (22:14)
[2022-12-05] MEDS: OLANZAPINE 5 MG TABLET PO SCH (22:14)
[2022-12-05] MEDS: BLOOD SUGAR DIAGNOSTIC 1 EACH STRIP VI SCH (22:28)
[2022-12-06] MEDS: IV D5/0.45 NACL 1,000 ML IV PRN (02:07)
--- NOTE | 2022-12-06 07:01 | NUR ---
MS RN CLOSING NOTES PATIENT IN BED SLEEPING COMFORTABLY. A/O X 1, DELAYED. ABLE TO MAKE NEEDS KNOWN. PT IS WOLOF SPEAKING. ON RA, BREATHING EVEN AND UNLABORED, NO DISTRESS OR SOB NOTED AT THIS TIME. IV ACCESS TO LEFT HAND #20G RUNNING D5 1/2 NS @ 75 ML/HR. HOB ELEVATED TO ENSURE AIRWAY AND FOR ASPIRATION PRECAUTION. SAFETY MEASURES MAINTAINED. WILL ENDORSE TO THE NEXT SHIFT.
--- NOTE | 2022-12-06 07:30 | NUR ---
PATIENT RECEIVED RESTING COMFORTABLY IN BED. NO S/S OR C/O PAIN OR DISTRESS NOTED. SIDE RAILS UP X2, CALL LIGHT LEFT WITHIN REACH. WILL CONTINUE PLAN OF CARE.
[2022-12-06] MEDS: BLOOD SUGAR DIAGNOSTIC 1 EACH STRIP VI SCH ×4 (07:35→21:45)
[2022-12-06] MEDS: INSULIN REGULAR, HUMAN 100 UNIT/ML 3 ML VIAL SQ PRN ×3 (07:36→21:43)
[2022-12-06 08:00] VITALS: BP 145/78
[2022-12-06] MEDS: DIVALPROEX SODIUM 250 MG TABLET.DR PO SCH ×2 (08:36→17:29)
[2022-12-06] MEDS: CHOLECALCIFEROL 1,000 UNIT TABLET (VIT D3) PO SCH (08:36)
[2022-12-06] MEDS: ASCORBIC ACID 500 MG TABLET PO SCH (08:36)
[2022-12-06] MEDS: DOCUSATE SODIUM 100 MG CAPSULE PO SCH (08:36)
[2022-12-06] MEDS: PANTOPRAZOLE 40 MG TABLET.DR PO SCH (08:36)
[2022-12-06] MEDS: APIXABAN 5 MG TABLET PO SCH ×2 (08:38→17:30)
[2022-12-06 10:00] VITALS: BP 145/78
[2022-12-06] MEDS: GLUCERNA SHAKE 237 ML CAN PO SCH ×2 (12:29→17:30)
[2022-12-06 16:00] VITALS: BP_SYST 113; BP_SYST 116; BP_DIAS 63; BP_DIAS 72
--- NOTE | 2022-12-06 18:21 | NUR ---
CHANGE OF SHIFT REPORT PT RESTING COMFORTABLY IN BED. NO S/S OR C/O PAIN OR DISTRESS NOTED. SIDE RAILS UP X2, CALL LIGHT LEFT WITHIN REACH. PT KEPT CLEAN, DRY, AND COMFORTABLE. NO SIGNIFICANT CHANGES SINCE PREVIOUS SHIFT. WILL GIVE REPORT TO KIRILL VELÁZQUEZ.
[2022-12-06 20:00] VITALS: BP 112/68
--- NOTE | 2022-12-06 20:06 | NUR ---
RN MS OPENING NOTES RECEIVED PATIENT IN BED, ON MODERATE HIGH BACK REST POSITION; A/O X 1 PATIENT IS DELAYED RESPONSE. ON ROOM AIR SATURATING WELL NO SOB OR DIFFICULTY OR BREATHING NOTED, NOT IN DISTRESS, WITH IV ACCESS AT RIGHT FA #22G WITH AT 75 ML/HR INFUSING WELL. FOR URINE CULTURE AND SWALLOW EVALUATION. ON PUREED DIET NO ASPIRATION NOTED. NO PAIN OR DISCOMFORT NOTED. KEPT BED ON LOWER LOCKED POSITION, KEPT SIDE RAILS UP X 2 ALL THE TIME, KEPT CALL LIGHT WITHIN AT REACH. WILL CONTINUE TO MONITOR FOR KIRK.
[2022-12-06] MEDS: CEFTRIAXONE 1 G in IV D5W 50 ML IV SCH (21:25)
[2022-12-06] MEDS: OLANZAPINE 5 MG TABLET PO SCH (21:25)
--- NOTE | 2022-12-06 23:30 | NUR ---
RN NOTES RE-TAKE PHOTOS DONE AND RECORDED
[2022-12-07] MEDS: IV D5/0.45 NACL 1,000 ML IV PRN (06:12)
[2022-12-07] MEDS: BLOOD SUGAR DIAGNOSTIC 1 EACH STRIP VI SCH (06:13)
--- NOTE | 2022-12-07 06:34 | NUR ---
RN MS CLOSING NOTES PATIENT IS IN BED, ASLEEP, ON MODERATE HIGH BACK REST POSITION. PATIENT IS ON PUREED DIET NO ASPIRATION NOTED. WITH GOOD VITAL SIGNS. WITH IV ACCESS AT RFA #22G WITH D5 1/2 AT 75ML/HR INFUSING WELL. NO PAIN OR DISCOMFORT NOTED, NO SOB OR DISTRESS.WITH CONDOM CATHETER IN PLACE CONNECTED TO URINE BAG,ALL DUE MEDICATIONS GIVEN, ALL NEEDS ATTENDED, TURN PATIENT EVERY 2 HOURS. KEPT BED ON LOWER LOCKED POSITION, KEPT SIDE RAILS UP X 2 ALL TH E TIME, KEPT PATIENT WARM AND COMFORTABLE, KEPT SAQIB LIGHT WITHIN AT REACH. WILL ENDORSED TO NEXT SHIFT FOR KIRK,
[2022-12-07 07:00] VITALS: BP 113/70
--- NOTE | 2022-12-07 07:30 | NUR ---
OPENING NOTE PATIENT RECEIVED IN BED, A/OX1, ON ROOM AIR, BREATHING EVEN AND UNLABORED, NO SOB NOTED. RESPONSE TO VERBAL/ LIGHT TOUCH. NO S/S OF OF PAIN. IV ACCESS YESICA #22 G INTACT ANT PATENT. BOWEL SOUNDS HYPERACTIVE, ABDOMEN SOFT, NO PAIN TO TOUCH. FALL AND SAFETY MEASURE IN PLACE: SRX2, BED ALARM ON AND BED AT THE LOWEST POSITION AND LOCKED, CALL LIGHT WITH REACH.
[2022-12-07] MEDS: ASCORBIC ACID 500 MG TABLET PO SCH (09:21)
[2022-12-07] MEDS: DIVALPROEX SODIUM 250 MG TABLET.DR PO SCH (09:21)
[2022-12-07] MEDS: DOCUSATE SODIUM 100 MG CAPSULE PO SCH (09:21)
[2022-12-07] MEDS: CHOLECALCIFEROL 1,000 UNIT TABLET (VIT D3) PO SCH (09:21)
[2022-12-07] MEDS: APIXABAN 5 MG TABLET PO SCH (09:22)
[2022-12-07] MEDS: PANTOPRAZOLE 40 MG TABLET.DR PO SCH (09:29)
[2022-12-07] MEDS: GLUCERNA SHAKE 237 ML CAN PO SCH (09:30)
--- NOTE | 2022-12-07 12:18 | NUR ---
DISCHARGE NOTE PATIENT IS DISCHARGED IN A STABLE MEDICAL CONDITION. AO/X1 ON ROOM AIR WITH NO S/S OF SOB OR DISTRESS. NO S/S OF PAIN. IV ACCESS WAS REMOVED AND CATHETER TIP IS INTACT. NO S/S OF BLEEDING AND PRESSURE DRESSING WAS APPLIED. SKIN ASSESSMENT WAS COMPLETED AND PICTURE WERE IN CHART. BELONGING SHEET WAS SIGNED AND PLACED IN CHART. HEALTH INSTRUCTION WERE GIVEN IN A WRITTEN FORMAT AND PROVIDED. PATIENT BEING DISCHARGED TO [facility], REPORT WAS GIVEN TO CHINA CEBALLOS. PATIENT LEFT VIA GURNEY ACCOMPANIED BY 2 EMT.
== END 2022-12-07 12:25 | DRG 640 ==
LOC: ER 15:02 → MED 18:50
PROVIDERS: ADMIT Internal Medicine; ATTEND Internal Medicine
DX: R62.7 Adult failure to thrive (principal); E43 Unspecified severe protein-calorie malnutrition; G93.41 Metabolic encephalopathy; N39.0 Urinary tract infection, site not specified; F02.83 Dementia in other diseases classified elsewhere, unspecified severity, with mood disturbance; D68.59 Other primary thrombophilia; D63.8 Anemia in other chronic diseases classified elsewhere; E11.9 Type 2 diabetes mellitus without complications; G30.9 Alzheimer's disease, unspecified; F20.9 Schizophrenia, unspecified; E88.09 Other disorders of plasma-protein metabolism, not elsewhere classified; I10 Essential (primary) hypertension; I70.0 Atherosclerosis of aorta; Z79.01 Long term (current) use of anticoagulants; Z79.84 Long term (current) use of oral hypoglycemic drugs; Z79.899 Other long term (current) drug therapy; Z87.01 Personal history of pneumonia (recurrent); Z20.822 Contact with and (suspected) exposure to COVID-19
CPT/HCPCS: 36415; 71045-TC; 80048-TC; 80053-TC; 80076-TC; 81001; 82140-TC; 82962-TC; 83690-TC; 83735-TC; 84100-TC; 85025-TC; 87081-TC; 87086-TC; 92526; 92611-TC; A4223; A4349; C9803; G0378; J0696; J1815; J2405; J3490; J7060